=== PATIENT | female | born 1950 | race Caucasian/White ===

== ENCOUNTER 2024-03-15 18:20 | Observation (INO) ==
[2024-03-15 18:52] LABS: ABS Basophils 0.1 10^3/uL (0.0-0.1); ABS Eosinophils 0.3 10^3/uL (0.0-0.5); ABS Lymphocytes 3.8 10^3/uL (1.0-4.8); ABS Monocytes 0.6 10^3/uL (0.0-0.9); ABS Neutrophils 3.8 10^3/uL (1.5-7.6); ABS Nucleated RBC 0.01 10^3/ul; Hematocrit 36.9 % (35-45); Hemoglobin 12.1 g/dL (11.5-14.3); Lymphocyte % 44.9 %; Mean Corpuscular Hemoglobin 27.6 pg (27-33); Mean Corpuscular Hgb Conc 32.8 g/dL (31-36); Mean Platelet Volume 7.8 fL (7.5-11.2); Nucleated Red Blood Cells % 0.1 %/100WBC (0.0-0.8); Platelet Count 245 10^3/uL (150-450); Red Blood Count 4.39 10^6/uL (3.63-4.92); Red Cell Distribution Width 15.1 % (12-17); White Blood Count 8.5 10^3/uL (3.8-11.8)
[2024-03-15 19:00] LABS: Activated Partial Thrombo Time 29.2 seconds (26.0-38.0); INR 0.98 (0.85-1.14)
[2024-03-15] MEDS: Iodixanol 320 (CONTRAST) 100 ML SDV IV ONE (19:07)
[2024-03-15 19:23] LABS: Albumin 4.3 g/dL (3.2-5.2); Albumin/Globulin Ratio 1.7 (1-3); Calcium 9.1 mg/dL (8.6-10.3); Creatinine, Serum 1.06 mg/dL (0.51-0.95); Direct Bilirubin 0.1 mg/dL (0.03-0.18); Globulin 2.5 g/dL (2-4); HDL Cholesterol 65.9 mg/dL; Indirect Bilirubin 0.4 mg/dL (0.3-1.0); Potassium 3.9 mmol/L (3.5-5.0); Total Bilirubin 0.5 mg/dL (0.2-1.0); Total Protein 6.8 g/dL (6.4-8.9); eGFR CKD-EPI 55.8 (>60)
[2024-03-15 21:45] LABS: High Sensitivity Troponin 1 Hr 5 pg/mL (<15)
[2024-03-15] MEDS: Ondansetron ODT 4 mg TAB 4 MG TAB SL STA (22:37)
[2024-03-16] MEDS ORDERED: Ondansetron ODT 4 mg TAB 4 MG TAB SL PRN (05:19)
[2024-03-16 06:09] LABS: ABS Lymphocytes 0.9 10^3/uL (1.0-4.8); ABS Monocytes 0.2 10^3/uL (0.0-0.9); ABS Neutrophils 6.6 10^3/uL (1.5-7.6); Hematocrit 35.5 % (35-45); Hemoglobin 11.8 g/dL (11.5-14.3); Lymphocyte % 11.4 %; Mean Corpuscular Hemoglobin 27.7 pg (27-33); Mean Corpuscular Hgb Conc 33.2 g/dL (31-36); Mean Corpuscular Volume 83.6 fL (80-97); Mean Platelet Volume 7.9 fL (7.5-11.2); Nucleated Red Blood Cells % 0.1 %/100WBC (0.0-0.8); Platelet Count 236 10^3/uL (150-450); Red Blood Count 4.25 10^6/uL (3.63-4.92); Red Cell Distribution Width 14.9 % (12-17); White Blood Count 7.7 10^3/uL (3.8-11.8)
[2024-03-16 06:44] LABS: Creatinine, Serum 0.98 mg/dL (0.51-0.95); eGFR CKD-EPI 61.3 (>60)
[2024-03-16 06:58] LABS: TSH Ultra Thyroid Stim Horm 1.73 mcIU/mL (0.34-5.60)
[2024-03-16] MEDS: Aspirin EC 81 mg TAB.EC (enteric coated) PO SCH (08:40)
[2024-03-16] MEDS: Heparin 5000 UNITS/ML 1 mL VIAL SUBCUT SCH (09:01)
[2024-03-16] MEDS: NS 0.9% 1000 ml BAG 1,000 ML IV SCH (09:46)
[2024-03-16] MEDS ORDERED: Nystatin TOP POWDER 15 GM BTL TOPICAL SCH (23:30)
[2024-03-17 06:06] VITALS: BP 114/65
== END 2024-03-17 10:25 | disposition left against medical advice (07) ==
LOC: ED 18:20 → EDHOLD 18:20 → SUATTDRO 22:47 → MED 03-16 14:07
PROVIDERS: ADMIT Internal Medicine; ATTEND Student in an Organized Health Care Education/Training Program